=== PATIENT | female | born 1945 | race Caucasian/White ===

== ENCOUNTER 2017-03-02 16:48 | Emergency (ER) | payer OTHER ==
[~2017-03-02] VITALS: Ht 152.4 cm; Wt 53.5 kg
[~2017-03-02 16:48] MED LIST: ADVIL200 M3 PO; AMBIEN 10 MG TA10 MG PO; AMBIEN 5 MG TABL5 M1 PO; ASA81BEC PO; ASPIRIN325 PO; AYR SALINE NASA14 GM TOP; BACTRIM DS TAB1 EACH PO; BREO ELLIPTA 11 EACH INH; CATAPRES-TTS 20.2 MG TRANSDERM; CEFUROXIME500 MG PO; CHILDREN'S ASPI81 M1 PO; COLACE100 MG PO; COZAAR 25 MG TA25 M1 PO; COZAAR 50 MG TA50 M2 PO; DAILY VITE1 EACH PO; DEEP SEA NASAL44 M1; FLUTICASONE FUROATE INH; GEMFIBROZIL 60600 M1 PO; GLUCOPHAGE1000 MG PO; HYDROCODON-ACE1 EAC5 PO; HYDROCODONE-AP1 EAC6 PO; KLOR-CON 1010 MEQ PO; LANTUS SOL100 UNIT/1 SUBQ; LASIX 20 MG TAB20 MG PO; LEVAQUIN 500 M500 M2 PO; LEVEMIR SUBQ; METFORMIN HCL500 MG PO; MOBIC15 MG PO; MULTIVITAMINS1 EAC7 PO; NICOTINE TRANSD21 M1 TRANSDERM; NORCO 10-325 T1 EACH PO; NORCO 5-325 TA1 EACH PO; NORTRIPTYLINE H25 M3 PO; NORVASC5 MG PO; NOVOLIN N100 UNIT/1 SQ; NOVOLIN R100 UNIT/1 SUBQ; PAXIL40 MG PO; PREDNISONE 10 M10 MG PO; PREDNISONE 20 M20 MG PO; PROAIR HFA8.5 GM INH; PULMICORT FLEX90 MCG INH; REQUIP1 MG PO; RESTORIL15 MG PO; SENNA PO; SEROQUEL 12.512.5 MG PO; SPIRIVA18 MCG INH; STOOL SOFTENER100 MG PO; THEO-24200 MG PO; THEO-DUR200 MG PO; THEOPHYLLINE S200 M1 PO; TYLENOL325 MG PO; VENTOLIN HFA INH8 GM INH; VILANTEROL INH; ZOLPIDEM TARTRA10 MG PO
[2017-03-02] MEDS ORDERED: MOBIC15 MG PO (20:07)
== END 2017-03-02 20:25 | disposition home or self-care (01) ==
LOC: ER 16:48
DX: S81.012A Laceration without foreign body, left knee, initial encounter (principal); S70.02XA Contusion of left hip, initial encounter; J44.9 Chronic obstructive pulmonary disease, unspecified; F32.9 Major depressive disorder, single episode, unspecified; F41.9 Anxiety disorder, unspecified; Z90.710 Acquired absence of both cervix and uterus; Z90.49 Acquired absence of other specified parts of digestive tract; I11.0 Hypertensive heart disease with heart failure; I50.9 Heart failure, unspecified; E11.9 Type 2 diabetes mellitus without complications; Z79.4 Long term (current) use of insulin; Z98.890 Other specified postprocedural states; F17.210 Nicotine dependence, cigarettes, uncomplicated; W18.09XA Striking against other object with subsequent fall, initial encounter; Y93.89 Activity, other specified; Y92.89 Other specified places as the place of occurrence of the external cause; Y99.8 Other external cause status

== ENCOUNTER 2017-03-06 16:05 | Inpatient (IN) | payer OTHER ==
[~2017-03-06] VITALS: Ht 152.4 cm; Wt 62.0 kg
--- NOTE | ~2017-03-06 | 2DMMODE ---
[facility] [address] [place] [address] 2 D/M-MODE ECHOCARDIOGRAM Name: SOPHIE ARENAS Room #: 216-P [facility] IN ..#: [id number] Admission: 03/06/17 Attend Phys: Warren Snyder MD Discharge: Date of : 43 Date of Service: 03/09/17 1317 Report #: [id number] THIS REPORT FOR: //name// APPROVED REPORT Study performed: 03/09/2017 09:08:32 EXAM: Comprehensive 2D, Doppler, and color-flow Echocardiogram Patient Location: Bedside Room #: 242 Blood Pressure: 122/73 mmHg HR: 104 bpm Other Information Study Quality: Adequate Indications Dyspnea Hx COPD, DM, Pulmonary HTN, CHF, HTN 2D Dimensions RVDd: 52.98 mm LVEF(%): 57.10 (>50%) IVSd: 14.00 (7-11mm) LVOT Diam: 18.00 (18-24mm) LVDd: 41.46 mm PWd: 12.35 (7-11mm) Ascending Ao: 31.65 (22-36mm) LVDs: 29.18 (25-40mm) Aortic Root: 33.11 mm Ledbetter's LVEF: 57.10 % Volumes Left Atrial Volume (Systole) Single Plane 4CH: 36.66 mL Single Plane 2CH: 51.15 mL Aortic Valve AoV Peak Mikal.: 2.10 m/s AO Peak Gr.: 17.60 mmHg LVOT Max P.59 mmHg AO Mean Gr.: 11.53 mmHg AO V2 Mean: 1.66 m/s LVOT Max V: 1.07 m/s AO V2 VTI: 39.09 cm JEANNINE Vmax: 1.30 cm2 Mitral Valve [facility] [place] [address] [place] [address] 2 D/M-MODE ECHOCARDIOGRAM Name: SOPHIE ARENAS Room #: 216-P [facility] IN [facility].#: [id number] Admission: 03/06/17 Attend Phys: Warren Snyder MD Discharge: Date of : 43 Date of Service: 03/09/17 1317 Report #: [id number] Decel. Time: 152.36 ms IVRT: 106.11 ms Pulmonary Valve PV Peak Mikal.: 1.31 m/s PV Peak Gr.: 6.91 mmHg Pulmonary Vein P Vein S: 48.1 m/s P Vein A: 33.62 m/s P Vein D: 69.0 m/s Tricuspid Valve TR Peak Mikal.: 4.12 m/s RAP Estimate: 10.00 mmHg TR Peak Gr.: 67.99 mmHg RVSP: 78.00 mmHg Left Ventricle The left ventricle is normal size. There is normal LV segmental wall motion. Mild concentric left ventricular hypertrophy. The left ventricular systolic function is normal. LVEF is 55%. This study is not technically sufficient to allow evaluation of the LV diastolic function. Right Ventricle Right ventricle is dilated. The right ventricular systolic function is hypokinetic. Atria The left atrium size is normal. Right atrium is dilated. Aortic Valve Aortic valve is calcified. Mild aortic regurgitation. Mild aortic stenosis. Mitral Valve Mild to moderate mitral annular calcification. The mitral valve is mildly thickened. Trace mitral regurgitation. No evidence of mitral valve stenosis. Tricuspid Valve The tricuspid valve is normal in structure. There is moderate to severe tricuspid regurgitation. The right atrial pressure is estimated at 10 mmHg. There is severe pulmonary hypertension with estimated PAP 78 mmHg. Pulmonic Valve The pulmonary valve is normal in structure. Trace pulmonic regurgitation. [facility] [address] [place] [address] 2 D/M-MODE ECHOCARDIOGRAM Name: SOPHIE ARENAS Room #: 216-P [facility] IN .R.#: [id number] Admission: 03/06/17 Attend Phys: Warren Snyder MD Discharge: Date of : 43 Date of Service: 03/09/17 1317 Report #: [id number] Great Vessels The aortic root is normal in size. The ascending aorta is normal in size. IVC is normal in size and collapses <50% with inspiration. Pericardium Small circumferential pericardial effusion. <Conclusion> The left ventricular systolic function is normal. There is normal LV segmental wall motion. LVEF is 55%. Right ventricle is dilated. Right ventricular systolic function is hypokinetic. Right atrium is dilated. Aortic valve is calcified. Mild aortic regurgitation and stenosis. Mild to moderate mitral annular calcification. The mitral valve is mildly thickened. Trace mitral regurgitation. There is severe pulmonary hypertension with estimated PAP 78 mmHg. Small circumferential pericardial effusion. <ELECTRONICALLY SIGNED> By: Donaldo Knapp MD, FACC 03/09/171316 16 16 Donaldo Knapp MD, FACC /INF
--- NOTE | ~2017-03-06 | EKG ---
[address] [address] ELECTROCARDIOGRAM REPORT Name: SOPHIE ARENAS Room #: 242-P ADM IN M.R.#: [id number] Admission: 03/06/17 Attend Phys: Warren Snyder MD Discharge: Date of : 43 Report #: [id number] THIS REPORT FOR: //name// [facility] ED Test Date: 2017-03-06 Test Time: 16:12:25 Pat Name: SOPHIE ARENAS Department: Room: 242 Gender: F Relationship Advisor: ANA : 1945 Requested By: eRx Dhillon Order Number: [id number] MD: Chico Keith Measurements Intervals [place] Rate: 105 P: 41 VA: 159 QRS: -64 QRSD: 106 T: 34 QT: 357 QTc: 472 Interpretive Statements Sinus tachycardia Left anterior fascicular block Low voltage, precordial leads Consider anterior infarct Compared to ECG 10/21/2016 22:19:12 No significant changes Electronically Signed On 03-09-2017 8:29:06 CDT by Chico Keith [email or web address] <ELECTRONICALLY SIGNED> By: Chico Keith MD 03/09/17 0829 11 11 Chico Keith MD /EPI
--- NOTE | ~2017-03-06 | HC ---
[facility] [place] [place] [address] CONSULTATION Name: SOPHIE ARENAS Room #: 242-P ADM IN M.R.#: [id number] Admission: 03/06/17 Attend Phys: Warren Snyder MD Discharge: Date of : 43 Report #: [id number] THIS REPORT FOR: //name// CC: Warren Foley DATE OF SERVICE: 03/06/2017 REASON FOR CONSULTATION: Respiratory failure. IMPRESSION: 1. Acute respiratory failure. 2. Metabolic acidosis and respiratory acidosis. 3. Acute kidney injury. 4. Abdominal pain, question etiology. 5. Bronchitis. 6. Chronic obstructive pulmonary disease. 7. History of abdominal surgery with infected mesh. 8. Anemia, normocytic. transfer icu icu protocol aerosol therapy zamora acidosis ivf with bicarb bipap prn zamora abd discomfort 40 min crit care time HISTORY OF PRESENT ILLNESS: This is a very pleasant 71-year-old female, currently on BiPAP, limited history. Per chart, disorientation, confusion and productive cough for 3 weeks. The patient complains of abdominal pain, however, progressive. No nausea or vomiting. Positive fever. Recently in the Emergency Room secondary to falls and abrasions. MEDICATIONS: Included theophylline, pregabalin, Losartan, ropinirole, paroxetine, gemfibrozil, metformin, nortriptyline, temazepam, insulin. ALLERGIES: None known. SOCIAL HISTORY: Positive tobacco. Negative ETOH. REVIEW OF SYSTEMS: Fever, chills, altered mental status, abdominal pain. No dysuria. No hemoptysis. PAST MEDICAL HISTORY: COPD, depression, restless legs, anemia, insomnia, CHF, pulmonary hypertension. [facility] [address] [place] [address] CONSULTATION Name: SOPHIE ARENAS Room #: 242-P ADM IN [facility].#: [id number] Admission: 03/06/17 Attend Phys: Warren Snyder MD Discharge: Date of : 43 Report #: [id number] PAST SURGICAL HISTORY: Include ventral hernia repair, colon perforation with colon resection with colostomy, hysterectomy, bladder lift, cholecystectomy, colostomy takedown, exploratory lap with removal of infected mesh in 03/2016. PHYSICAL EXAMINATION: VITAL SIGNS: Temperature 98.3, pulse 108, respirations 18 and BP 121/61 in the ER down to 97/46. LUNGS: Decreased, clear. HEART: Tachycardic. ABDOMEN: Distended, tender. EXTREMITIES: Show no definite edema. No calf tenderness. LABORATORY DATA: Lab and x-ray were reviewed. Chest x-ray showed no acute infiltrate. White count in the ER 8.8, hemoglobin 9.8, platelets 408. ER ABG was 7.197, pCO2 of 49, pO2 of 72 on 3 liters, lactate 1.77. BUN in the ER was 46, creatinine 1.3. We will follow closely with you. <ELECTRONICALLY SIGNED> By: Cassidy Preciado MD 03/08/17 1449 2312 53 Cassidy Preciado MD /nt
--- NOTE | ~2017-03-06 | HC ---
[facility] [place] [address] [address] [place] [address] CONSULTATION Name: SOPHIE ARENAS Room #: 216-P [facility] IN .R.#: [id number] Admission: 03/06/17 Attend Phys: Warren Snyder MD Discharge: Date of : 43 Report #: [id number] THIS REPORT FOR: //name// CC: Warren Foley DATE OF SERVICE: 03/11/2017 HISTORY OF PRESENT ILLNESS: The patient is a 71-year-old white female with a history of COPD, admitted with some confusion, had acute on chronic renal insufficiency, was noted to have worsening shortness of breath with an exacerbation of COPD and a pneumonia. She has severe pulmonary hypertension. She was treated for acute hypoxic respiratory failure and has been on Solu-Medrol with transitioning to oral prednisone. She is currently on 4 liters nasal cannula. We are seeing her in rehabilitation medicine consultation. PAST MEDICAL HISTORY: Includes diabetes mellitus, ventral hernia repair in 2013, restless legs syndrome, cholecystectomy. She had a colostomy with subsequent takedown, chronic pain syndrome, CHF, insulin-dependent diabetes mellitus, severe pulmonary hypertension. HABITS: Current every day smoker. No history of alcohol abuse. MEDICATIONS: Please see the full medication listing. ALLERGIES: No known drug allergies. FAMILY HISTORY: Noncontributory. SOCIAL HISTORY: Lives in a house with spouse. She had been on a walker and some low dose oxygen but was able to advance to the point where she was no longer utilizing the walker and had weaned herself off the oxygen. She lives with her spouse and an adult daughter. Daughter is noted to be a [facility] employee. REVIEW OF SYSTEMS: Did not offer any current complaints of chest pain, shortness of breath or abdominal discomfort. She does complain of some general overall weakness. No extremity focal complaints. No complaints of headache. PHYSICAL EXAMINATION: A 71-year-old white female in no obvious distress. Last recorded temperature 97.8, pulse 102, respirations 16, blood pressure 147/71. The patient is alert. She follows basic commands without difficulty. She is on 4 liters nasal cannula. She has functional range of motion of both upper extremities with strength grade 4 to 4-/5. DTRs are trace to 1. In her lower extremities, there is no focal calf swelling, functional range of motion with strength grade 4/5. DTRs are trace to 1. Tone appeared to be intact. She is [address] [address] CONSULTATION Name: SOPHIE ARENAS Room #: 216-P [facility] IN ..#: [id number] Admission: 03/06/17 Attend Phys: Warren Snyder MD Discharge: Date of : 44 Report #: [id number] contact guard with sit to stand. Gait is 100 feet contact guard needing up to 6 liters without a device. She was needing min assist to don her socks and shoes. ASSESSMENT: A 71-year-old white female with the following problem list: 1. Pulmonary rehabilitation. 2. Acute hypoxic and hypercapnic respiratory failure. 3. Chronic obstructive pulmonary disease exacerbation. 4. Pneumonia. 5. Severe pulmonary hypertension. 6. Hypertension. 7. Diabetes mellitus. 8. Acute renal insufficiency. 9. History of chronic pain syndrome. 10. History of restless legs syndrome. 11. Prior colon resection with colostomy takedown. 12. Tobacco abuse. 13. Depression/anxiety. PLAN: Therapies are working with her on transfers, mobility, ADLs, improving overall endurance. She is needing increased O2 6 liters with activity and is at 4 liters at rest. Insurance will need to be checked regarding rehab therapy options as she further medically stabilizes. Thank you for asking us to assist in this patient's care. By: [id number] Cj Munoz MD /nt
[2017-03-06 16:12] VITALS: BP 97/46
[2017-03-06] MEDS ORDERED: LYRICA 75 MG CA75 MG PO (16:43)
[2017-03-06] MEDS ORDERED: COZAAR 25 MG TA25 M1 PO (16:43)
[2017-03-06 17:07] LABS: ABSOLUTE NEUTROPHILS 7.1 thou/uL (1.4-8.2); BASOPHILS 2.4 % (0.0-2.0); EOSINOPHILS 0.2 % (0.0-3.0); HEMATOCRIT 32.2 % (37.0-47.0); HEMOGLOBIN 9.8 gm/dL (12.0-15.0); LYMPHOCYTES 8.2 % (24.0-44.0); MCH 24.3 pg (26.0-34.0); MCHC 30.4 g/dL (28.0-37.0); MONOCYTES 8.8 % (1.0-8.0); PLATELET COUNT 408 thou/uL (150-400); POLYS 80.4 % (36.0-66.0); RBC 4.02 mil/uL (4.20-5.00); RDW 21.9 % (10.5-14.5); WBC 8.8 thou/uL (4.0-11.0)
[2017-03-06 17:08] LABS: MANUAL DIFF NO
[2017-03-06 17:16] LABS: ANION GAP 9 mmol/L (7-16); BUN 46 mg/dL (7-18); CALCIUM 8.7 mg/dL (8.5-10.1); CHLORIDE 105 mmol/L (98-107); CO2 20 mmol/L (21-32); CREATININE 1.3 mg/dL (0.6-1.0); GLUCOSE 167 mg/dL (74-106); POTASSIUM 4.9 mmol/L (3.5-5.1); SODIUM 134 mmol/L (136-145)
[2017-03-06 17:21] LABS: ABG SAMPLE TYPE ARTERIAL; BE(vivo) -9.3 mmol/L (-2 to +3); HCO3 18.5 mmol/L (22.0-26.0); LACTATE 1.77 mmol/L (0.5-2.0); O2(CT) 12.5 mL/dL (15.0-23.0); O2Hb 85.2 % (92.0-98.0); PCO2 48.7 mmHg (35.0-45.0); STICK SITE R.RADIAL; pH 7.197 (7.360-7.450); sO2 90.7 % (92.0-98.0)
[2017-03-06 17:28] LABS: NT-PRO BRAIN NAT PEPTIDE 730 pg/mL (<300); TROPONIN-I < 0.04 ng/mL (<0.04-0.07)
[2017-03-06 20:42] VITALS: BP 121/61
[2017-03-06 20:53] LABS: ABG SAMPLE TYPE ARTERIAL; HCO3 16.1 mmol/L (22.0-26.0); LACTATE 0.95 mmol/L (0.5-2.0); O2(CT) 13.8 mL/dL (15.0-23.0); O2Hb 90.1 % (92.0-98.0); PCO2 45.7 mmHg (35.0-45.0); PO2 86.4 mmHg (80.0-100.0); sO2 93.9 % (92.0-98.0); tCO2 17.5 mmol/L (24.0-30.0)
[2017-03-06 20:58] LABS: Pressure Support 12 cm H20; pH 7.164 (7.360-7.450)
[2017-03-06 22:50] LABS: CALCIUM 8.3 mg/dL (8.5-10.1); CREATININE 1.4 mg/dL (0.6-1.0); POTASSIUM 5.5 mmol/L (3.5-5.1)
[2017-03-06 22:54] LABS: ALBUMIN 2.6 g/dL (3.4-5.0); TOTAL BILIRUBIN 0.2 mg/dL (<0.1-1.0); TOTAL PROTEIN 6.7 g/dL (6.4-8.2)
[2017-03-06 23:00] LABS: APTT 34.3 Seconds (24.5-32.8); INR 1.1; PROTIME 11.7 Seconds (9.3-11.4)
[2017-03-06 23:11] VITALS: BP 128/77
[2017-03-06 23:15] VITALS: BP 130/67
[2017-03-06 23:30] VITALS: BP 115/69
[2017-03-06 23:45] VITALS: BP 108/60
[2017-03-07] VITALS (35 sets, daily range): BP systolic 93–133; BP diastolic 50–81
[2017-03-07 04:33] LABS: HEMATOCRIT 29.3 % (37.0-47.0); HEMOGLOBIN 9.1 gm/dL (12.0-15.0); MCH 24.5 pg (26.0-34.0); MCHC 31.2 g/dL (28.0-37.0); MCV 78.4 fL (80.0-100.0); PLATELET COUNT 317 thou/uL (150-400); RBC 3.74 mil/uL (4.20-5.00); RDW 21.3 % (10.5-14.5); WBC 7.9 thou/uL (4.0-11.0)
[2017-03-07 04:47] LABS: MANUAL DIFF YES
[2017-03-07 05:03] LABS: MAGNESIUM 1.7 mg/dL (1.8-2.4); TROPONIN-I < 0.04 ng/mL (<0.04-0.07)
[2017-03-07 05:17] LABS: ALBUMIN 2.2 g/dL (3.4-5.0); CALCIUM 7.6 mg/dL (8.5-10.1); CREATININE 1.2 mg/dL (0.6-1.0); TOTAL BILIRUBIN 0.2 mg/dL (<0.1-1.0); TOTAL PROTEIN 5.9 g/dL (6.4-8.2)
[2017-03-07 05:49] LABS: ABG SAMPLE TYPE ARTERIAL; BE(vivo) -2.1 mmol/L (-2 to +3); HCO3 25.1 mmol/L (22.0-26.0); LACTATE 1.35 mmol/L (0.5-2.0); O2(CT) 11.3 mL/dL (15.0-23.0); O2Hb 86.8 % (92.0-98.0); PCO2 55.5 mmHg (35.0-45.0); PO2 55.5 mmHg (80.0-100.0); pH 7.273 (7.360-7.450); sO2 84.3 % (92.0-98.0); tCO2 26.8 mmol/L (24.0-30.0)
[2017-03-07 05:50] LABS: Pressure Support 12 cm H20; STICK SITE L.BRACHIAL
[2017-03-07 05:51] LABS: URINE BILIRUBIN NEGATIVE (Negative); URINE BLOOD 2+ (Negative); URINE COLOR YELLOW; URINE GLUCOSE-RANDOM* NEGATIVE (Negative); URINE KETONES NEGATIVE (Negative); URINE NITRITE NEGATIVE (Negative); URINE PROTEIN (DIPSTICK) 1+ (Negative); URINE SPECIFIC GRAVITY 1.025 (1.003-1.035); URINE UROBILINOGEN 0.2 E.U./dl (0.2-1.0)
[2017-03-07 06:13] LABS: SQUAMOUS 0-3 Few /LPF (0-3)
[2017-03-07 06:16] LABS: CASTS None Seen /LPF (None Seen)
[2017-03-07 06:19] LABS: AMORPHOUS URATES Many /LPF (None Seen); BACTERIA 1-9 Few /HPF (None Seen); CRYSTALS None Seen /LPF (None Seen); URINE RBC 3-10 Few /HPF (0-2); URINE WBC 6-15 Few /HPF (0-5)
[2017-03-07 06:57] LABS: ABSOLUTE NEUTROPHILS 7.5 thou/uL (1.4-8.2); ANISOCYTOSIS 2+; NUCLEATED RBCS 3 /100WBC; TOTAL CELL COUNT 100
[2017-03-07 06:58] LABS: MACROCYTES 1+; MICROCYTES 1+; POLYCHROMASIA 1+
[2017-03-07 07:03] LABS: LARGE PLATELETS FEW
[2017-03-07 09:18] LABS: ABG SAMPLE TYPE ARTERIAL; BE(vivo) -2.3 mmol/L (-2 to +3); HCO3 23.6 mmol/L (22.0-26.0); LACTATE 1.32 mmol/L (0.5-2.0); O2(CT) 12.2 mL/dL (15.0-23.0); O2Hb 88.9 % (92.0-98.0); PCO2 45.7 mmHg (35.0-45.0); pH 7.331 (7.360-7.450); sO2 88.7 % (92.0-98.0)
[2017-03-07 09:19] LABS: STICK SITE R.RADIAL
[2017-03-07] MEDS ORDERED: COLACE100 MG PO (14:49)
[2017-03-08] VITALS (23 sets, daily range): BP systolic 93–158; BP diastolic 40–90
[2017-03-08 04:16] LABS: HEMOGLOBIN 8.9 gm/dL (12.0-15.0); MCH 24.1 pg (26.0-34.0); MCHC 30.8 g/dL (28.0-37.0); MCV 78.4 fL (80.0-100.0); PLATELET COUNT 254 thou/uL (150-400); RBC 3.69 mil/uL (4.20-5.00); RDW 22.2 % (10.5-14.5); WBC 5.5 thou/uL (4.0-11.0)
[2017-03-08 04:42] LABS: ALBUMIN 2.1 g/dL (3.4-5.0); CALCIUM 7.9 mg/dL (8.5-10.1); POTASSIUM 4.5 mmol/L (3.5-5.1); TOTAL BILIRUBIN 0.1 mg/dL (<0.1-1.0); TOTAL PROTEIN 5.6 g/dL (6.4-8.2)
[2017-03-08 04:56] LABS: MANUAL DIFF YES
[2017-03-08 05:05] LABS: ABG SAMPLE TYPE ARTERIAL; BE(vivo) -4.5 mmol/L (-2 to +3); HCO3 23.2 mmol/L (22.0-26.0); LACTATE 0.85 mmol/L (0.5-2.0); O2(CT) 12.8 mL/dL (15.0-23.0); O2Hb 93.2 % (92.0-98.0); PCO2 56.2 mmHg (35.0-45.0); sO2 93.5 % (92.0-98.0); tCO2 24.9 mmol/L (24.0-30.0)
[2017-03-08 05:06] LABS: Pressure Support 12 cm H20; STICK SITE L.RADIAL; pH 7.233 (7.360-7.450)
[2017-03-08 07:59] LABS: ABSOLUTE NEUTROPHILS 4.2 thou/uL (1.4-8.2); TOTAL CELL COUNT 100
[2017-03-08 08:07] LABS: ANISOCYTOSIS 3+
[2017-03-08 08:10] LABS: POLYCHROMASIA OCCASIONAL
[2017-03-08 08:11] LABS: HYPOCHROMASIA 1+; OVALOCYTES FEW
[2017-03-08 12:45] LABS: ABG SAMPLE TYPE ARTERIAL; HCO3 23.8 mmol/L (22.0-26.0); LACTATE 1.26 mmol/L (0.5-2.0); O2(CT) 12.4 mL/dL (15.0-23.0); O2Hb 92.4 % (92.0-98.0); PCO2 51.9 mmHg (35.0-45.0); PO2 73.2 mmHg (80.0-100.0); sO2 92.7 % (92.0-98.0); tCO2 25.4 mmol/L (24.0-30.0)
[2017-03-08 12:48] LABS: STICK SITE R.RADIAL
[2017-03-08 12:55] LABS: % SATURATION 4 % (20-39); IRON 15 ug/dL (50-170); TIBC 345 ug/dL (250-450); UIBC 330 ug/dL
[2017-03-08 13:09] LABS: TSH 3.034 uIU/mL (0.358-3.740)
[2017-03-09] VITALS (16 sets, daily range): BP systolic 92–150; BP diastolic 56–102
[2017-03-09 04:31] LABS: HEMATOCRIT 29.8 % (37.0-47.0); HEMOGLOBIN 8.9 gm/dL (12.0-15.0); MCH 23.8 pg (26.0-34.0); MCHC 29.9 g/dL (28.0-37.0); MCV 79.6 fL (80.0-100.0); PLATELET COUNT 221 thou/uL (150-400); RBC 3.74 mil/uL (4.20-5.00); RDW 21.6 % (10.5-14.5); WBC 6.1 thou/uL (4.0-11.0)
[2017-03-09 04:33] LABS: MANUAL DIFF YES
[2017-03-09 04:49] LABS: ALBUMIN 2.2 g/dL (3.4-5.0); CREATININE 1.1 mg/dL (0.6-1.0); POTASSIUM 4.7 mmol/L (3.5-5.1); TOTAL BILIRUBIN 0.1 mg/dL (<0.1-1.0); TOTAL PROTEIN 5.9 g/dL (6.4-8.2)
[2017-03-09 05:18] LABS: ABG SAMPLE TYPE ARTERIAL; BE(vivo) -4.4 mmol/L (-2 to +3); HCO3 23.1 mmol/L (22.0-26.0); LACTATE 0.99 mmol/L (0.5-2.0); O2(CT) 12.9 mL/dL (15.0-23.0); O2Hb 95.2 % (92.0-98.0); PCO2 55.3 mmHg (35.0-45.0); PO2 92.2 mmHg (80.0-100.0); STICK SITE L.RADIAL; pH 7.239 (7.360-7.450); sO2 95.6 % (92.0-98.0); tCO2 24.8 mmol/L (24.0-30.0)
[2017-03-09 05:30] LABS: ABSOLUTE NEUTROPHILS 4.9 thou/uL (1.4-8.2); ANISOCYTOSIS 2+; ATYPICAL LYMPHS 1 %; MACROCYTES 1+; MICROCYTES 1+; POLYCHROMASIA OCCASIONAL; TOTAL CELL COUNT 100
[2017-03-10 04:33] VITALS: BP 140/80
[2017-03-10 07:40] VITALS: BP 143/77
[2017-03-10 11:40] VITALS: BP 144/66
[2017-03-10 11:47] LABS: HEMATOCRIT 28.6 % (37.0-47.0); HEMOGLOBIN 8.7 gm/dL (12.0-15.0); MCH 24.1 pg (26.0-34.0); MCHC 30.5 g/dL (28.0-37.0); MCV 78.9 fL (80.0-100.0); RBC 3.63 mil/uL (4.20-5.00); RDW 21.6 % (10.5-14.5); WBC 5.7 thou/uL (4.0-11.0)
[2017-03-10 11:55] LABS: CALCIUM 8.3 mg/dL (8.5-10.1); CREATININE 0.8 mg/dL (0.6-1.0); POTASSIUM 4.8 mmol/L (3.5-5.1)
[2017-03-10 15:35] VITALS: BP 130/63
[2017-03-10 19:35] VITALS: BP 146/69
[2017-03-11 03:28] LABS: HEMATOCRIT 28.2 % (37.0-47.0); HEMOGLOBIN 8.5 gm/dL (12.0-15.0); MCH 23.7 pg (26.0-34.0); MCHC 30.2 g/dL (28.0-37.0); MCV 78.7 fL (80.0-100.0); RBC 3.59 mil/uL (4.20-5.00); RDW 21.6 % (10.5-14.5); WBC 5.3 thou/uL (4.0-11.0)
[2017-03-11 03:40] VITALS: BP 96/54
[2017-03-11 03:50] LABS: CALCIUM 7.9 mg/dL (8.5-10.1); CREATININE 0.9 mg/dL (0.6-1.0); POTASSIUM 4.5 mmol/L (3.5-5.1)
[2017-03-11 04:16] VITALS: BP 157/81
[2017-03-11 06:43] LABS: ABG SAMPLE TYPE ARTERIAL; BE(vivo) -0.3 mmol/L (-2 to +3); LACTATE 0.89 mmol/L (0.5-2.0); O2(CT) 13.4 mL/dL (15.0-23.0); O2Hb 93.6 % (92.0-98.0); PO2 78.7 mmHg (80.0-100.0); tCO2 28.8 mmol/L (24.0-30.0)
[2017-03-11 06:44] LABS: STICK SITE L.BRACHIAL; pH 7.286 (7.360-7.450)
[2017-03-11 06:45] LABS: ABG COMMENT OFF BIPAP
[2017-03-11 07:40] VITALS: BP 147/64
[2017-03-11 11:15] VITALS: BP 147/71
[2017-03-11 16:35] VITALS: BP 162/81
[2017-03-11 20:11] VITALS: BP 167/81
[2017-03-12 03:52] LABS: HEMATOCRIT 30.6 % (37.0-47.0); HEMOGLOBIN 9.4 gm/dL (12.0-15.0); MCHC 30.7 g/dL (28.0-37.0); RBC 3.93 mil/uL (4.20-5.00); RDW 21.5 % (10.5-14.5); WBC 6.7 thou/uL (4.0-11.0)
[2017-03-12 04:00] LABS: CALCIUM 8.8 mg/dL (8.5-10.1); CREATININE 0.8 mg/dL (0.6-1.0); POTASSIUM 4.2 mmol/L (3.5-5.1)
[2017-03-12 04:16] VITALS: BP 159/79
[2017-03-12 08:00] VITALS: BP 139/74
[2017-03-12 12:00] VITALS: BP 147/70
[2017-03-12 16:00] VITALS: BP 163/79
[2017-03-12 16:47] LABS: ABG COMMENT DECR. O2 TO 4L.; ABG SAMPLE TYPE ARTERIAL; HCO3 26.7 mmol/L (22.0-26.0); LACTATE 1.37 mmol/L (0.5-2.0); O2(CT) 13.9 mL/dL (15.0-23.0); O2Hb 96.1 % (92.0-98.0); PCO2 42.1 mmHg (35.0-45.0); PO2 102.9 mmHg (80.0-100.0); STICK SITE R.RADIAL; sO2 97.8 % (92.0-98.0)
[2017-03-12 19:34] VITALS: BP 147/87
[2017-03-13] VITALS (10 sets, daily range): BP systolic 136–168; BP diastolic 77–90
[2017-03-13 03:25] LABS: HEMATOCRIT 30.8 % (37.0-47.0); HEMOGLOBIN 9.4 gm/dL (12.0-15.0); MCH 23.8 pg (26.0-34.0); MCHC 30.6 g/dL (28.0-37.0); MCV 77.7 fL (80.0-100.0); RBC 3.96 mil/uL (4.20-5.00); RDW 21.7 % (10.5-14.5); WBC 6.4 thou/uL (4.0-11.0)
[2017-03-13 03:38] LABS: CALCIUM 8.3 mg/dL (8.5-10.1); CREATININE 0.8 mg/dL (0.6-1.0); POTASSIUM 4.2 mmol/L (3.5-5.1)
[2017-03-13] MEDS ORDERED: VENTOLIN HFA 1818 GM INH (12:16)
[2017-03-13] MEDS ORDERED: DUONEB 2.5-0.5 M3 ML INH (12:16)
[2017-03-13] MEDS ORDERED: AUGMENTIN 500-1 EACH PO ×2 (12:16→12:50)
[2017-03-13] MEDS ORDERED: IRON325 PO (12:16)
[2017-03-13] MEDS ORDERED: PROTONIX40 M1 PO (12:38)
[2017-03-13] MEDS ORDERED: PREDNISOLONE 5 M5 M1 PO (12:50)
== END 2017-03-13 18:15 | disposition home health service (06) | DRG 177 ==
LOC: ER 16:05 → EROBS 17:45 → ICU 17:45 → 4W 20:00 → ICU 23:18 → 2N 03-09 13:00
PROVIDERS: Emergency Medicine; Hospitalist; Internal Medicine; Internal Medicine Pulmonary Disease; Nurse Practitioner Family
PROC: 5A09557 Assistance with Respiratory Ventilation, Greater than 96 Consecutive Hours, Continuous Positive Airway Pressure (ICD-10-PCS; principal; 2017-03-06)
DX: J69.0 Pneumonitis due to inhalation of food and vomit (principal); J96.22 Acute and chronic respiratory failure with hypercapnia; J96.21 Acute and chronic respiratory failure with hypoxia; J44.1 Chronic obstructive pulmonary disease with (acute) exacerbation; E87.4 Mixed disorder of acid-base balance; N17.9 Acute kidney failure, unspecified; I13.0 Hypertensive heart and chronic kidney disease with heart failure and stage 1 through stage 4 chronic kidney disease, or unspecified chronic kidney disease; E87.0 Hyperosmolality and hypernatremia; E11.22 Type 2 diabetes mellitus with diabetic chronic kidney disease; F41.9 Anxiety disorder, unspecified; I27.2 Other secondary pulmonary hypertension; I50.9 Heart failure, unspecified; D64.9 Anemia, unspecified; G25.81 Restless legs syndrome; F17.210 Nicotine dependence, cigarettes, uncomplicated; G89.4 Chronic pain syndrome; N18.9 Chronic kidney disease, unspecified; F32.9 Major depressive disorder, single episode, unspecified; Z53.29 Procedure and treatment not carried out because of patient's decision for other reasons; Z90.710 Acquired absence of both cervix and uterus; Z90.49 Acquired absence of other specified parts of digestive tract; Z71.6 Tobacco abuse counseling; Z86.010 Personal history of colon polyps; Z79.4 Long term (current) use of insulin
CPT/HCPCS: 10078; 10081

== ENCOUNTER 2021-11-16 22:00 | Inpatient (IN) | payer MEDICARE ==
[~2021-11-16] VITALS: Ht 152.4 cm; Wt 58.1 kg
--- NOTE | ~2021-11-16 | EMS ---
[address] [address] EMS Patient Care Report Name: SOPHIE ARENAS Room #: 361-P [facility] IN .R.#: [id number] Admission: 11/17/21 Attend Phys: Josee Moses MD Discharge: 11/21/21 Date of : 44 Report #: [id number] THIS REPORT FOR: //name// Report Transmitted: 11/21/2021 18:04 EMS Care Summary [facility] [id number] @ 11/16/2021 20:44 Incident Location [address] [place] [address] Patient SOPHIE ARENAS Female, 76 Years 1945 Patient Address [address] [place] [address] Patient History Chronic Obstructive Pulmonary Disease (COPD),Dementia,Epilepsy,Diabetes,Urinary Tract Infection (UTI), Patient Allergies Fentanyl, Patient Medications Pantoprazole, Paroxetine, Alprazolam, Theophylline, Amlodipine, Losartan, Levetiracetam, Metformin, Chief Complaint high blood sugar Disposition Transported No Lights/[place] Dispatch Reason Sick Person Transported To [facility] Narrative S51 responded non-emergent to sick person dispatch. S51 arrived to find patient laying supine in bed. Patient was alert. Airway was patent[place] [address] EMS Patient Care Report Name: SOPHIE ARENAS Room #: 361-[facility]#: [id number] Admission: 11/17/21 Attend Phys: Josee Moses MD Discharge: 11/21/21 Date of : 44 Report #: [id number] regular and non-labored. Skin was pink, warm,and dry. Peripheral pulses were strong, equal, and regular, and equal. Patient was A&Ox3 with a GCS of 13. Patient initially had no complaint. Patient's daughter stated her blood sugar is in the 300's after she took her insulin approx. 20 min ago, She also stated her mother is currently being treated for a UTI and on day 1 of her antibiotics, she has tested negative for Covid one day ago after her tested positive 3 days ago, and she has not been eating. S51 checked patient's blood glucose level read high on the glucometer. Assessment revealed no other abnormalities. Patient initially refused, then was unsure if she wanted to go to the hospital. S51 delayed on scene due to patient arguing with family members about going to the hospital. When patient decided she wanted to go to the hospital. Assisted patient into stairchair, secured with seatbelts, moved to cot, secured with seatbelts, then moved to the ambulance. Placed patient on 4 liters of oxygen via nasal cannula due to patient's COPD requirements. Established 20 gauge IV in left forearm. Bandaged small skin tear on left upper arm. Reassessed vitals en route to the hospital. Transported non-emergent to [facility]. Arrived without incident. Transferred patient care to TARAH Segal in room 4. Initial Vitals @20:57P: 80,R: 14,BP: 118/57,Pain: 0/10,GCS: 13,Glucose: -2,SpO2: 91,Revised Trauma: 12, @20:58P: 79,R: 16,Pain: 0/10,GCS: 13,SpO2: 93, @21:41P: 75,R: 16,BP: 168/92,Pain: 0/10,GCS: 13,Glucose: -2,SpO2: 93,Revised Trauma: 12, @21:10P: 76,R: 16,Pain: 0/10,GCS: 13,SpO2: 90, @21:52P: 78,R: 14,BP: 140/61,Pain: 0/10,GCS: 13,SpO2: 91,Revised Trauma: 12, Impression Diabetic Hyperglycemia Procedures @20:52 ALS Assessment Response: UnchangedSucceeded @21:42 IV Therapy - Normal Saline (.9% NaCl) 15cc (20 ga) Site: Forearm-Left Response: UnchangedSucceeded @21:05 Bandaging Response: UnchangedSucceeded @20:58 3-Lead ECG Response: UnchangedSucceeded @21:40 Oxygen FlowRate: 4 Device: CO2 Nasal Cannula Response: UnchangedSucceeded Timeline 20:42,Call Received 20:42,Psap Call 20:44,Dispatched [address] [address] EMS Patient Care Report Name: ARENASSOPHIE Room #: 361-P [facility] IN ..#: [id number] Admission: 11/17/21 Attend Phys: Josee Moses MD Discharge: 11/21/21 Date of : 43 Report #: [id number] 20:48,En Route 20:51,Initial Responder On Scene 20:51,On Scene 20:51,At Patient 20:52,ALS Assessment,Response: UnchangedSucceeded, 20:57,BP: 118/57 M,PULSE: 80,RR: 14 R,SPO2: 91 Ox,ETCO2: ,BG: -2,PAIN: 0,GCS: 13, 20:58,3-Lead ECG,Response: UnchangedSucceeded, 20:58,BP: / M,PULSE: 79,RR: 16 R,SPO2: 93 Ox,ETCO2: ,BG: ,PAIN: 0,GCS: 13, 21:05,Bandaging,Response: UnchangedSucceeded, 21:10,BP: / M,PULSE: 76,RR: 16 R,SPO2: 90 Ox,ETCO2: ,BG: ,PAIN: 0,GCS: 13, 21:40,Oxygen FlowRate: 4 Device: CO2 Nasal Cannula Response: UnchangedSucceeded, 21:41,BP: 168/92 M,PULSE: 75,RR: 16 R,SPO2: 93 Ox,ETCO2: ,BG: -2,PAIN: 0,GCS: 13, 21:41,Depart Scene 21:42,IV Therapy - Normal Saline (.9% NaCl) 15cc 20 ga Site: Forearm-Left,Response: UnchangedSucceeded, 21:52,BP: 140/61 M,PULSE: 78,RR: 14 R,SPO2: 91 Ox,ETCO2: ,BG: ,PAIN: 0,GCS: 13, 21:56,At Destination 21:57,Transfer Patient 22:14,Call Closed Disclaimer v1.1 Copyright 2021 [employer] This EMS Care Summary contains data elements from the applicable legal record (which may be displayed differently). It is designed to provide pertinent information for the following purposes: continuity of care, clinical quality, and state data reporting. The complete legal record is available to ED staff and administrators of the receiving hospital in [facility]'s Patient Tracker. All data is provided "as is."
--- NOTE | ~2021-11-16 | EMS ---
[address] [address] EMS Patient Care Report Name: SOPHIE ARENAS Room #: 361-P [facility] IN M.R.#: [id number] Admission: 11/17/21 Attend Phys: Josee Moses MD Discharge: 11/21/21 Date of : 43 Report #: [id number] THIS REPORT FOR: //name// Report Transmitted: 11/21/2021 19:03 EMS Care Summary [facility] Incident [phone] @ 11/16/2021 20:44 Incident Location [address] [place] [address] Patient SOPHIE ARENAS Female, 76 Years 1945 Patient Address [address] [place] [address] Patient History Chronic Obstructive Pulmonary Disease (COPD),Dementia,Epilepsy,Diabetes,Urinary Tract Infection (UTI), Patient Allergies Fentanyl, Patient Medications Pantoprazole, Paroxetine, Alprazolam, Theophylline, Amlodipine, Losartan, Levetiracetam, Metformin, Chief Complaint high blood sugar Disposition Transported No Lights/[place] Dispatch Reason Sick Person Transported To [facility] Narrative S51 responded non-emergent to sick person dispatch. S51 arrived to find patient laying supine in bed. Patient was alert. Airway was [place] [address] EMS Patient Care Report Name: SOPHIE ARENAS Room #: 361-[facility]#: [id number] Admission: 11/17/21 Attend Phys: Josee Moses MD Discharge: 11/21/21 Date of : 43 Report #: [id number] regular and non-labored. Skin was pink, warm,and dry. Peripheral pulses were strong, equal, and regular, and equal. Patient was A&Ox3 with a GCS of 13. Patient initially had no complaint. Patient's daughter stated her blood sugar is in the 300's after she took her insulin approx. 20 min ago, She also stated her mother is currently being treated for a UTI and on day 1 of her antibiotics, she has tested negative for Covid one day ago after her tested positive 3 days ago, and she has not been eating. S51 checked patient's blood glucose level read high on the glucometer. Assessment revealed no other abnormalities. Patient initially refused, then was unsure if she wanted to go to the hospital. S51 delayed on scene due to patient arguing with family members about going to the hospital. When patient decided she wanted to go to the hospital. Assisted patient into stairchair, secured with seatbelts, moved to cot, secured with seatbelts, then moved to the ambulance. Placed patient on 4 liters of oxygen via nasal cannula due to patient's COPD requirements. Established 20 gauge IV in left forearm. Bandaged small skin tear on left upper arm. Reassessed vitals en route to the hospital. Transported non-emergent to [facility]. Arrived without incident. Transferred patient care to TARAH Segal in room 4. Initial Vitals @20:57P: 80,R: 14,BP: 118/57,Pain: 0/10,GCS: 13,Glucose: -2,SpO2: 91,Revised Trauma: 12, @20:58P: 79,R: 16,Pain: 0/10,GCS: 13,SpO2: 93, @21:41P: 75,R: 16,BP: 168/92,Pain: 0/10,GCS: 13,Glucose: -2,SpO2: 93,Revised Trauma: 12, @21:10P: 76,R: 16,Pain: 0/10,GCS: 13,SpO2: 90, @21:52P: 78,R: 14,BP: 140/61,Pain: 0/10,GCS: 13,SpO2: 91,Revised Trauma: 12, Impression Diabetic Hyperglycemia Procedures @20:52 ALS Assessment Response: UnchangedSucceeded @21:42 IV Therapy - Normal Saline (.9% NaCl) 15cc (20 ga) Site: Forearm-Left Response: UnchangedSucceeded @21:05 Bandaging Response: UnchangedSucceeded @20:58 3-Lead ECG Response: UnchangedSucceeded @21:40 Oxygen FlowRate: 4 Device: CO2 Nasal Cannula Response: UnchangedSucceeded Timeline 20:42,Call Received 20:42,Psap Call 20:44,Dispatched [address] [address] EMS Patient Care Report Name: ARENASSOPHIE Room #: 361-P [facility] IN ..#: [id number] Admission: 11/17/21 Attend Phys: Josee Moses MD Discharge: 11/21/21 Date of : 43 Report #: [id number] 20:48,En Route 20:51,Initial Responder On Scene 20:51,On Scene 20:51,At Patient 20:52,ALS Assessment,Response: UnchangedSucceeded, 20:57,BP: 118/57 M,PULSE: 80,RR: 14 R,SPO2: 91 Ox,ETCO2: ,BG: -2,PAIN: 0,GCS: 13, 20:58,3-Lead ECG,Response: UnchangedSucceeded, 20:58,BP: / M,PULSE: 79,RR: 16 R,SPO2: 93 Ox,ETCO2: ,BG: ,PAIN: 0,GCS: 13, 21:05,Bandaging,Response: UnchangedSucceeded, 21:10,BP: / M,PULSE: 76,RR: 16 R,SPO2: 90 Ox,ETCO2: ,BG: ,PAIN: 0,GCS: 13, 21:40,Oxygen FlowRate: 4 Device: CO2 Nasal Cannula Response: UnchangedSucceeded, 21:41,BP: 168/92 M,PULSE: 75,RR: 16 R,SPO2: 93 Ox,ETCO2: ,BG: -2,PAIN: 0,GCS: 13, 21:41,Depart Scene 21:42,IV Therapy - Normal Saline (.9% NaCl) 15cc 20 ga Site: Forearm-Left,Response: UnchangedSucceeded, 21:52,BP: 140/61 M,PULSE: 78,RR: 14 R,SPO2: 91 Ox,ETCO2: ,BG: ,PAIN: 0,GCS: 13, 21:56,At Destination 21:57,Transfer Patient 22:14,Call Closed Disclaimer v1.1 Copyright 2021 [employer] This EMS Care Summary contains data elements from the applicable legal record (which may be displayed differently). It is designed to provide pertinent information for the following purposes: continuity of care, clinical quality, and state data reporting. The complete legal record is available to ED staff and administrators of the receiving hospital in [facility]'s Patient Tracker. All data is provided "as is."
[~2021-11-16 22:00] MED LIST changes: +AUGMENTIN 500-1 EACH PO; +DUONEB 2.5-0.5 M3 ML INH; +IRON325 PO; +LYRICA 75 MG CA75 MG PO; +PREDNISOLONE 5 M5 M1 PO; +PROTONIX40 M1 PO; +VENTOLIN HFA 1818 GM INH
[2021-11-16 22:24] VITALS: BP 121/63
[2021-11-16 22:30] LABS: BASOPHILS 0.5 % (0.0-2.0); EOSINOPHILS 0.1 % (0.0-3.0); HEMATOCRIT 35.6 % (37.0-47.0); HEMOGLOBIN 11.5 gm/dL (12.0-15.0); LYMPHOCYTES 10.5 % (24.0-44.0); MCH 29.6 pg (26.0-34.0); MCHC 32.3 g/dL (28.0-37.0); MCV 91.5 fL (80.0-100.0); MONOCYTES 11.9 % (1.0-8.0); PLATELET COUNT 154 thou/uL (150-400); RBC 3.89 mil/uL (4.20-5.00); RDW 17.2 % (10.5-14.5); WBC 5.2 thou/uL (4.0-11.0)
[2021-11-16 22:31] LABS: BE(vivo) -8.2 mmol/L (-2 to +3); HCO3 18.6 mmol/L (22.0-26.0); PCO2 VENOUS 42.9 mmHg (41.0-51.0); PO2 VENOUS 44.4 mmHg (35.0-45.0)
[2021-11-16 22:38] LABS: CALCIUM 7.3 mg/dL (8.5-10.1); CREATININE 2.5 mg/dL (0.6-1.0); POTASSIUM 3.1 mmol/L (3.5-5.1)
[2021-11-16 22:46] LABS: ALBUMIN 3.2 g/dL (3.4-5.0); TOTAL BILIRUBIN 0.2 mg/dL (0.2-1.0); TOTAL PROTEIN 6.3 g/dL (6.4-8.2)
[2021-11-17 00:14] LABS: URINE BILIRUBIN NEGATIVE (Negative); URINE BLOOD 2+ (Negative); URINE CLARITY CLEAR; URINE COLOR YELLOW; URINE GLUCOSE-RANDOM* 1+ (Negative); URINE KETONES NEGATIVE (Negative); URINE LEUKOCYTES-REFLEX 2+ (Negative); URINE NITRITE-REFLEX NEGATIVE (Negative); URINE PROTEIN (DIPSTICK) 2+ (Negative); URINE SPECIFIC GRAVITY 1.025 (1.005-1.035); URINE UROBILINOGEN 0.2 E.U./dl (0.2-1.0)
[2021-11-17 00:29] LABS: SQUAMOUS 0-3 Few /LPF (0-3)
[2021-11-17 00:30] LABS: BACTERIA-REFLEX None Seen /HPF (None Seen); CALCIUM OXALATE >10 Many /LPF (None Seen); CASTS None Seen /LPF (None Seen); MUCUS 0-3 Light strn/LPF (None Seen); URINE RBC >20 Many /HPF (NONE SEEN); URINE WBC-REFLEX >25 Many /HPF (0-5)
[2021-11-17 03:46] VITALS: BP 108/45
--- NOTE | 2021-11-17 03:50 | NUR ---
ATTEMPTED TO CALL [facility] AT THIS TIME. THIS NURSE WAS TOLD THE NURSE WAS BUSY AND COULD NOT COME TO THE PHONE AT THIS TIME.
--- NOTE | 2021-11-17 04:04 | NUR ---
REPORT ATTEMPTED AT THIS TIME. THIS NURSE WAS TOLD THAT THE NURSE WILL CALL HER BACK.
--- NOTE | 2021-11-17 05:17 | NUR ---
REPORT CALLED AT THIS TIME TO INPATIENT NURSE.
[2021-11-17 07:37] VITALS: BP 135/80
--- NOTE | 2021-11-17 08:04 | NUR ---
PT ADMITTED FROM ER AROUND 05:30. VSS AFEBRILE. UNLABORED ON 3LNC. BS DIMINISHED. INSTRUCTED PT ON FALL PRECAUTIONS. BED ALARM IS ON. ORIENTED PT TO RM AND CALL LIGHT. PT UNCOOPERATIVE WITH ADMISSION QUESTIONS. MUCH COAXING NEEDED TO COMPLETE ADMISSION QUESTIONS. NS AT 150 LFA. CONSULTS CALLED ORDERED. INFORMED DAY SHIFT NS PT FULLY ADMITTED EXCEPT HOME MEDICATIONS NEEDED TO BE OBTAINED.
[2021-11-17] MEDS ORDERED: CIPRO250 M2 PO (11:01)
[2021-11-17] MEDS ORDERED: LOMOTIL 2.5-0.01 TAB PO (11:02)
[2021-11-17] MEDS ORDERED: LOMOTIL TABLET1 EACH (11:03)
[2021-11-17] MEDS ORDERED: NORCO 10-325 T1 EACH (11:04)
[2021-11-17] MEDS ORDERED: LIPITOR 40 MG T40 M1 PO (11:05)
[2021-11-17] MEDS ORDERED: AMLODIPINE BESY10 MG PO (11:05)
[2021-11-17] MEDS ORDERED: OXCARBAZEPINE300 MG PO (11:05)
[2021-11-17] MEDS ORDERED: KEPPRA 500 MG500 M1 (11:06)
[2021-11-17] MEDS ORDERED: PREGABALIN75 MG PO (11:06)
[2021-11-17] MEDS ORDERED: THEOPHYLLINE A400 MG PO (11:07)
[2021-11-17] MEDS ORDERED: PAROXETINE HCL20 MG PO (11:07)
[2021-11-17 11:51] VITALS: BP 130/62
--- NOTE | 2021-11-17 13:00 | EKG ---
[address] [place] [address] ELECTROCARDIOGRAM REPORT Name: SOPHIE ARENAS Room #: 361- ADM IN M.R.#: [id number] Admission: 11/17/21 Attend Phys: Josee Moses MD Discharge: Date of : 43 Report #: [id number] [facility] ED Test Date: 2021-11-16 Test Time: 22:39:13 Pat Name: SOPHIE ARENAS Department: Room: [facility] Gender: F Broommaker: PRITESH : 1945 Requested By: Humberto Mendieta Order Number: [id number] MD: Donaldo Knapp Measurements Intervals [place] Rate: 77 P: 54 CO: 154 QRS: -52 QRSD: 108 T: 1 QT: 452 QTc: 512 Interpretive Statements Sinus rhythm Left anterior fascicular block Abnormal R-wave progression, late transition Prolonged QT interval Compared to ECG 03/06/2017 16:12:25 Prolonged QT interval now present Sinus tachycardia no longer present Electronically Signed On 11-17-2021 12:59:56 [employer]ICE [employer]ENTER SUPERVISOR by Donaldo Knapp [email or web address] <ELECTRONICALLY SIGNED> By: Donaldo Knapp MD, [facility] 11/17/21 1259 38 38 Donaldo Knapp MD, [facility] /EPI
[2021-11-17 15:30] VITALS: BP 126/52
--- NOTE | 2021-11-17 18:38 | NUR ---
CARE ASSUMED THIS AM, ALERT AND ORIENTED X3-4. FORGETFUL AT TIMES. CURRENTLY ON 7L OXYGEN, SOB WITH EXERTION. PT PHARMACY CALLED AND HOME MED VERIFIED. UP TO BSC WITH 1 ASSIST. 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 FALL AND ENHANCED PRECAUTIONS IN PLACE. DENIES ANY NEEDS MARILYN, WILL CONTINUE TO MONITOR.
[2021-11-17 19:46] VITALS: BP 134/71
[2021-11-17 21:46] LABS: ABSOLUTE NEUTROPHILS 3.5 thou/uL (1.4-8.2); BASOPHILS 0.2 % (0.0-2.0); HEMATOCRIT 31.9 % (37.0-47.0); HEMOGLOBIN 10.5 gm/dL (12.0-15.0); MCH 29.9 pg (26.0-34.0); MCHC 32.9 g/dL (28.0-37.0); MCV 90.9 fL (80.0-100.0); MONOCYTES 7.1 % (1.0-8.0); PLATELET COUNT 129 thou/uL (150-400); POLYS 85.7 % (36.0-66.0); RBC 3.51 mil/uL (4.20-5.00); RDW 17.7 % (10.5-14.5); WBC 4.1 thou/uL (4.0-11.0)
[2021-11-17 22:00] LABS: ALBUMIN 2.6 g/dL (3.4-5.0); ANION GAP 15 mmol/L (7-16); BUN 32 mg/dL (7-18); CALCIUM 6.6 mg/dL (8.5-10.1); CHLORIDE 106 mmol/L (98-107); CO2 21 mmol/L (21-32); CREATININE 2.3 mg/dL (0.6-1.0); GLUCOSE 246 mg/dL (74-106); POTASSIUM 3.1 mmol/L (3.5-5.1); SGOT 37 U/L (15-37); SGPT 29 U/L (30-65); TOTAL BILIRUBIN < 0.1 mg/dL (0.2-1.0); TOTAL PROTEIN 6.1 g/dL (6.4-8.2)
[2021-11-17 22:03] LABS: SODIUM 142 mmol/L (136-145)
--- NOTE | 2021-11-17 23:18 | NUR ---
PT ALERT AND ORIENTED X4. ANXIOUS AND IRRITATBLE AT TIMES. PT C/O ENCINAS, RIGHT HIP PAIN, HERNIA PAIN. AND NONCARDIAC CHEST PAIN WITH DEEP BREATHING AND COUGHING. MEDICATED WITH HYDROCODONE AND LYRICA. NOTIFIED INSTRUMENT PANEL ASSEMBLER OF +DDIMER 0.51, MG 1.0. k 3.1 AND NONCARDIAC CHEST PAIN PT STATES HURTS WITH DEEP BREATHING OR COUGHING. WILL GET VQ SCAN IN AM ORDERED. PT ON HEPARIN SQ. WILL REPLACE LYTES ORDERED. WILL WATCH PT FOR CHANGES. PT SR ON MONITOR WITH OCCASIONAL PVCS.
[2021-11-18 00:02] VITALS: BP 139/62
--- NOTE | 2021-11-18 03:02 | NUR ---
PT SLEEPING QUIETLY. VERBALIZED RELIEF OF PAIN AFTER HYDROCODONE. NO S/S DISTRESS ON 4LNC PRESENTLY.
[2021-11-18 04:06] LABS: GLYCOHEMOGLOBIN (HGB A1C) 7.8 % (4.8-5.6)
[2021-11-18 05:00] VITALS: BP 153/76
[2021-11-18 05:57] LABS: ABSOLUTE NEUTROPHILS 4.2 thou/uL (1.4-8.2); BASOPHILS 0.5 % (0.0-2.0); HEMATOCRIT 32.5 % (37.0-47.0); HEMOGLOBIN 10.7 gm/dL (12.0-15.0); LYMPHOCYTES 3.8 % (24.0-44.0); MCH 29.5 pg (26.0-34.0); MCHC 32.8 g/dL (28.0-37.0); MCV 89.8 fL (80.0-100.0); MONOCYTES 4.9 % (1.0-8.0); PLATELET COUNT 121 thou/uL (150-400); POLYS 90.8 % (36.0-66.0); RBC 3.62 mil/uL (4.20-5.00); RDW 17.4 % (10.5-14.5); WBC 4.6 thou/uL (4.0-11.0)
[2021-11-18 06:19] LABS: ALBUMIN 2.7 g/dL (3.4-5.0); ANION GAP 13 mmol/L (7-16); BUN 28 mg/dL (7-18); CALCIUM 7.2 mg/dL (8.5-10.1); CHLORIDE 108 mmol/L (98-107); CO2 21 mmol/L (21-32); CREATININE 2.2 mg/dL (0.6-1.0); DIRECT BILIRUBIN < 0.1 mg/dL (<0.1-0.2); GLUCOSE 238 mg/dL (74-106); POTASSIUM 3.4 mmol/L (3.5-5.1); SGOT 35 U/L (15-37); SGPT 30 U/L (14-59); SODIUM 142 mmol/L (136-145); TOTAL BILIRUBIN 0.1 mg/dL (0.2-1.0)
--- NOTE | 2021-11-18 06:45 | NUR ---
PT PROGRESING SLOWLY TOWARDS D/C GOALS. VSS. C/O HIP PAIN THIS AM. HYDROCODONE GIVEN FOR PAIMN. PT FELL BACK ASLEEP. NO S/S DISTRESS.
[2021-11-18 07:39] VITALS: BP 150/74
--- NOTE | 2021-11-18 09:54 | NUR ---
Nutrition: pt admitted with UTI, PRISCILA, COVID. S/W pt over phone. High risk screen for poor intake and weight loss. Pt voices current weight down 5# from usual of 130#. Unsure of time frame. Denies poor appetite prior to admit and is eating 60-100% of meals so far on heart healthy diet. Hx DM with hyperglycemia present. BG 199-232. Will add Carb controlled to diet order. Consider low nutrition risk.
[2021-11-18 11:32] VITALS: BP 121/68
--- NOTE | 2021-11-18 12:31 | NUR ---
Pt sat on side of bed and fed self breakfast with min direction. transferred to bsc w/o problem. feeling worse as morning has gone on "i dont want to do anything but lay in this bed." agreed to go for VQ scan but then refused once down for test. Dr Moses paged to notify. IV fluid and antibx continue to infuse without problem. pt oriented. remains >92% on 4 L o2. will continue to monitor and follow poc
[2021-11-18 15:52] VITALS: BP 112/63
--- NOTE | 2021-11-18 19:07 | HC ---
[facility] [place] [address] CONSULTATION Name: SOPHIE ARENAS Room #: 361-P ADM IN M.R.#: [id number] Admission: 11/17/21 Attend Phys: Josee Moses MD Discharge: Date of : 43 Report #: [id number] THIS REPORT FOR: cc: EMMA - No family physician/PCP FAM - No family physician/PCP Dusty Ortega MD ~ DATE OF SERVICE: 11/17/2021 INFECTIOUS DISEASE CONSULTATION REASON FOR CONSULTATION: I was asked to evaluate concerning COVID-19 pneumonia. HISTORY OF PRESENT ILLNESS: The patient is a 76-year-old with underlying history of COPD and requires 4 liters of oxygen chronically at home. In addition, she has diabetes, pulmonary hypertension. She has been recently treated for urinary tract infection, 6 days ago had the acute onset of fatigue, nonproductive cough, mild headache, arthralgias, myalgias, mild GI upset with intermittent emesis and subsequent diarrhea. Denied any fever, chills or sweats. She has been vaccinated x2 for COVID-19. No recent booster. Denied any chest pain, palpitations or hemoptysis. No dysuria. PAST MEDICAL HISTORY: COPD, chronic O2 requiring anxiety, depression, restless leg syndrome, congestive heart failure, diabetes, anemia, insomnia, pulmonary hypertension, colon perforation, chronic pain syndrome, ventral hernia repair with infection, hysterectomy, cholecystectomy, bladder sling surgery, colostomy with takedown. FAMILY HISTORY: No report of tuberculosis. SOCIAL HISTORY: She is a smoker of cigarettes. No significant alcohol intake. is also admitted with COVID-19. ALLERGIES: None known. MEDICATIONS: As noted on her MAR, which were reviewed. REVIEW OF SYSTEMS: A 14-point review of system was negative other than what has been described above. PHYSICAL EXAMINATION: GENERAL: She was afebrile and hemodynamically stable. Alert, cooperative, pleasant on 6 liters of oxygen per nasal cannula. SKIN: Without rash or decubitus. No palpable adenopathy. She was moderately obese. HEENT: Eyes without scleral icterus. Mouth without mucositis. NECK: Supple. [facility] [address] [place] [address] CONSULTATION Name: SOPHIE ARENAS David Room #: 361-P [facility] IN .R.#: [id number] Admission: 11/17/21 Attend Phys: Josee Moses MD Discharge: Date of : 43 Report #: [id number] LUNGS: Few crackles in the bases bilaterally without consolidation. HEART: Regular, without murmur. ABDOMEN: Soft and nontender with no hepatosplenomegaly or mass. EXTREMITIES: Without clubbing, cyanosis or edema. NEUROLOGIC: Cranial nerves intact and strength in the upper and lower extremities was symmetric and within normal limits. LABORATORY DATA: Reviewed. MICROBIOLOGY: Reviewed. IMAGING: Chest x-ray reviewed. CT scan of the abdomen and pelvis reviewed. IMPRESSION: 1. A 76-year-old underlying chronic obstructive pulmonary disease, now with COVID-19 pneumonia and respiratory failure with acute kidney injury, also with cystitis on treatment. 2. Anemia. 3. Hypertension. 4. Hyperlipidemia. 5. Diabetes. RECOMMENDATION: We will continue with combination corticosteroids and remdesivir. Continue antibiotic coverage pending culture results. Check blood and urine culture in addition to sputum culture. Follow serial laboratory studies. The patient will remain on the COVID isolation unit for cardiopulmonary monitoring. <ELECTRONICALLY SIGNED> By: Dusty Ortega MD 11/18/21 1907 [id number] 48 Dusty Ortega MD /nt
[2021-11-18 20:00] VITALS: BP 134/60
--- NOTE | 2021-11-19 03:31 | NUR ---
PT PPROGRESSING TOWARDS D/C GOALS VSS AFEBRLILE. UNLABORED ON 4LNC. NO S/S OF RESPIRATORY DISTRESS TONIGHT. C/O ANXIETY AND INSOMNIA. MELATONINA ND XANAX GIVEN ORDERED. PT HAS BEEN RESTING QUIETLY SLEEPING MOST OF NIGHT. BED DOWN CALL LIGHT IN REACH. BED ALARM IS ON. VOIDS PER BSC OR INC IN BRIEFS.
[2021-11-19 05:18] VITALS: BP 151/61
[2021-11-19 05:40] LABS: ALBUMIN 2.6 g/dL (3.4-5.0); ANION GAP 13 mmol/L (7-16); BUN 31 mg/dL (7-18); CALCIUM 7.2 mg/dL (8.5-10.1); CHLORIDE 108 mmol/L (98-107); CO2 22 mmol/L (21-32); CREATININE 2.2 mg/dL (0.6-1.0); DIRECT BILIRUBIN < 0.1 mg/dL (<0.1-0.2); GLUCOSE 342 mg/dL (74-106); PHOSPHORUS 3.7 mg/dL (2.5-4.9); SGOT 34 U/L (15-37); SGPT 35 U/L (30-65); SODIUM 143 mmol/L (136-145); TOTAL BILIRUBIN < 0.1 mg/dL (0.2-1.0); TOTAL PROTEIN 5.9 g/dL (6.4-8.2)
[2021-11-19 08:04] VITALS: BP 146/74
[2021-11-19 11:50] VITALS: BP 141/73
--- NOTE | 2021-11-19 12:53 | NUR ---
PT UP IN THE CHAIR MARILYN, UP TO BSC WITH 1 ASSIST. INCONTINENT AT TIMES. REHAB TEAM CAME TO EVALUATE PT, PT STATED SHE DOESNT NEED REHAB. CURRENTLY ON 4L OF OXYGEN, SOB EXERTION. PT IS A FEEDER DUE TO BEING BLIND. FALL AND ENHANCED PRECAUTIONS IN PLACE. WILL CONTINUE TO MONITOR.
--- NOTE | 2021-11-19 14:25 | NUR ---
INITIAL ASSESSMENT: MAEGAN reviewed chart and spoke with nursing and attending physician. Pt was admitted fom home due to COVID/UTI. Pt placed in Enhanced Isolation. Pt has received the Pfizer COVID vaccination. Pt is afebrile and on 4L of O2. Pt is on IV meds. Therapy ordered. MAEGAN placed call to pt's room. No answer. MAEGAN spoke with pt's dtr, Nighat, via phone. Introduced role of SW. Pt and spouse lives at home. Two of their adult children live with them. Prior to admission, pt was using a walker. Pt has home O2 in place through [facility]. Pt is normally on 3L of O2. Pt has used several HH agencies in the past and has been to [facility]. SW discussed discharge plan. Pt's dtr states that preference would be for pt to return home, as she is better in her familiar environment. Pt is partially blind. No preference of HH agency. Pt's PCP is Dr. Carmen Jackson at [facility]. MAEGAN is following to assist as needed with discharge planning.
[2021-11-19 15:31] VITALS: BP 133/66
[2021-11-19 20:13] VITALS: BP 141/80
--- NOTE | 2021-11-19 20:16 | NUR ---
PT SON STATES SHE STARTED HAVING COVID SYMPTOMS NOV 10
[2021-11-20 03:06] LABS: ABSOLUTE NEUTROPHILS 2.9 thou/uL (1.4-8.2); BASOPHILS 0.5 % (0.0-2.0); EOSINOPHILS 0.6 % (0.0-3.0); HEMOGLOBIN 10.5 gm/dL (12.0-15.0); LYMPHOCYTES 8.6 % (24.0-44.0); MCH 30.2 pg (26.0-34.0); MCHC 32.7 g/dL (28.0-37.0); MCV 92.2 fL (80.0-100.0); MONOCYTES 7.5 % (1.0-8.0); PLATELET COUNT 137 thou/uL (150-400); POLYS 82.8 % (36.0-66.0); RBC 3.47 mil/uL (4.20-5.00); RDW 17.7 % (10.5-14.5); WBC 3.5 thou/uL (4.0-11.0)
[2021-11-20 04:34] LABS: ALBUMIN 2.7 g/dL (3.4-5.0); ANION GAP 15 mmol/L (7-16); BUN 34 mg/dL (7-18); CALCIUM 7.3 mg/dL (8.5-10.1); CHLORIDE 108 mmol/L (98-107); CO2 21 mmol/L (21-32); DIRECT BILIRUBIN < 0.1 mg/dL (<0.1-0.2); GLUCOSE 209 mg/dL (74-106); POTASSIUM 3.7 mmol/L (3.5-5.1); SGOT 30 U/L (15-37); SGPT 34 U/L (30-65); SODIUM 144 mmol/L (136-145); TOTAL BILIRUBIN < 0.1 mg/dL (0.2-1.0); TOTAL PROTEIN 5.7 g/dL (6.4-8.2)
[2021-11-20 05:56] VITALS: BP 138/99
--- NOTE | 2021-11-20 06:07 | NUR ---
Progress pt a/o x4 up with sba to bsc. on 3 to 4 liters o2 gets sob with activity but recovers easily. voiding qs tolerating diet and has good po intake. c/o chronic back pain and hydrocodone given po q6hrs with effect pt slept after. continue poc.
[2021-11-20 07:55] VITALS: BP 146/85
[2021-11-20 11:29] VITALS: BP 130/61
--- NOTE | 2021-11-20 14:31 | NUR ---
MAEGAN reviewed chart and spoke with nursing and attending physician. Pt remains in Enhanced Isolation due to COVID. Pt is afebrile and on 3L of O2. PT is on IV abx and Remdesivir. Physical therapy has discharge pt. Recommendation made for pt to have HH services upon discharge. Discharge home is anticipated for tomorrow. MAEGAN spoke with pt's son, Daniel, via phone to provide update. Options for HH providers discussed. No preference voiced. MAEGAN confirmed home address and phone number MAEGAN notified [facility] liaison of new referral. [facility] can accept pt on service. Pt has home O2 in place through [facility]. Pt's son to update pt's dtr, Nighat. Plan is for pt to discharge home with HH services. MAEGAN is following to assist as needed with discharge planning.
[2021-11-20 15:35] VITALS: BP 149/66
--- NOTE | 2021-11-20 18:23 | NUR ---
PATIENT A&OX4, 4L VIA NC, UP TO CHAIR TODAY FOR MEALS AND WALKED AROUND ROOM WITH X1 ASSIST, NSR WITH FREQUENT PVCs.
[2021-11-20 19:40] VITALS: BP 141/61
[2021-11-21 03:18] VITALS: BP 145/79
[2021-11-21 05:05] LABS: ALBUMIN 2.8 g/dL (3.4-5.0); ANION GAP 13 mmol/L (7-16); BUN 46 mg/dL (7-18); CALCIUM 7.7 mg/dL (8.5-10.1); CHLORIDE 104 mmol/L (98-107); CO2 24 mmol/L (21-32); CREATININE 2.1 mg/dL (0.6-1.0); DIRECT BILIRUBIN < 0.1 mg/dL (<0.1-0.2); GLUCOSE 290 mg/dL (74-106); PHOSPHORUS 3.1 mg/dL (2.5-4.9); SGOT 23 U/L (15-37); SGPT 29 U/L (30-65); SODIUM 141 mmol/L (136-145); TOTAL BILIRUBIN < 0.1 mg/dL (0.2-1.0); TOTAL PROTEIN 5.7 g/dL (6.4-8.2)
--- NOTE | 2021-11-21 06:47 | NUR ---
PROGRESS PT C/O STOMACHACHE LAST NIGHT REQUESTED PROTONIX GAVE AM DOSE EARLY, COLACE GIVEN AND PT HAD BM AND STATED SHE FELT BETTER. UP WITH SBA VOIDING QS. TELEMETRY INTACT READING SR/ST WITH RATES IN 60'S TO 90'S.
[2021-11-21 07:50] VITALS: BP 134/53
[2021-11-21 09:00] VITALS: BP 133/60
[2021-11-21 11:30] VITALS: BP 133/60
[2021-11-21 11:56] VITALS: BP 133/60
[2021-11-21] MEDS ORDERED: PREDNISONE 10 M10 M1 PO (15:27)
[2021-11-21] MEDS ORDERED: CEFDINIR300 MG PO (15:28)
[2021-11-21] MEDS ORDERED: THEOPHYLLINE A400 MG PO (15:30)
[2021-11-21] MEDS ORDERED: PAXIL40 MG PO (15:30)
--- NOTE | 2021-11-21 16:12 | NUR ---
DISCHARGE NOTE: SW reviewed chart and spoke with nursing and attending physician. Pt remains in Enhanced Isolation due to COVID. Pt is medically stable for discharge home today. Pt refused HH services. SW updated [facility] liaison. MAEGAN spoke with pt's dtr, Nighat, via phone to provide update and discuss discharge. SW informed Nighat that pt declined HH services. Pt's dtr verbalized understanding and will be providing transportation home for pt. Family will bring portable O2 tank. SW updated pt's nurse. Nursing to call Nighat when pt is ready for discharge. No SW discharge needs identified at this time, but is available to assist should needs arise.
--- NOTE | 2021-11-21 18:41 | NUR ---
RN ASSUMED PT'S CARE AT 0700-1730PM, PT IS A&OX4, PT IS ON O2 5-6L/MIN/NC, PT'S O2SAT STAY AT 94-97%, PT'S VS ARE STABLE , PT REQUESTS TO DC HOME, BUT PT REFUSED HOME HEALTH CARE SERVICES, PT'S FAMILY WILL TAKE CARE PT AT HOME, PT AND PT'S 2 DAUGHTERS UNDERSTAND DC TEACHING WELL, INCLUIDING NEW MEDICATIONS AND COVID ISOLATION DAYS. PT'S DAUGHTER QLIKVIEW DEVELOPER PT AT 1730PM.
== END 2021-11-21 17:24 | disposition home or self-care (01) | DRG 177 ==
LOC: ER 22:00 → EROBS 11-17 05:11 → 3W 11-17 05:11
PROVIDERS: Emergency Medicine; Nurse Practitioner Family; Specialist; ADMIT Internal Medicine; ATTEND Internal Medicine
PROC: XW033E5 Introduction of Remdesivir Anti-infective into Peripheral Vein, Percutaneous Approach, New Technology Group 5 (ICD-10-PCS; principal; 2021-11-17)
DX: U07.1 COVID-19 (principal); J96.21 Acute and chronic respiratory failure with hypoxia; J12.82 Pneumonia due to coronavirus disease 2019; N17.9 Acute kidney failure, unspecified; J44.0 Chronic obstructive pulmonary disease with (acute) lower respiratory infection; J44.1 Chronic obstructive pulmonary disease with (acute) exacerbation; I13.0 Hypertensive heart and chronic kidney disease with heart failure and stage 1 through stage 4 chronic kidney disease, or unspecified chronic kidney disease; N30.00 Acute cystitis without hematuria; E46 Unspecified protein-calorie malnutrition; E11.65 Type 2 diabetes mellitus with hyperglycemia; I50.9 Heart failure, unspecified; N18.9 Chronic kidney disease, unspecified; B96.1 Klebsiella pneumoniae [K. pneumoniae] as the cause of diseases classified elsewhere; E78.5 Hyperlipidemia, unspecified; F17.210 Nicotine dependence, cigarettes, uncomplicated; F41.9 Anxiety disorder, unspecified; F32.A Depression, unspecified; Z90.49 Acquired absence of other specified parts of digestive tract; E87.6 Hypokalemia; Z68.25 Body mass index [BMI] 25.0-25.9, adult
CPT/HCPCS: 10879

== ENCOUNTER 2021-11-24 15:44 | Emergency (ER) | payer MEDICARE ==
[~2021-11-24] VITALS: Ht 152.4 cm; Wt 59.0 kg
--- NOTE | ~2021-11-24 | EMS ---
[address] [address] EMS Patient Care Report Name: SOPHIE ARENAS Room #: DEP Barb#: [id number] Admission: 11/24/21 Attend Phys: Discharge: 11/24/21 Date of : 43 Report #: [id number] THIS REPORT FOR: //name// Report Transmitted: 11/25/2021 09:57 EMS Care Summary [facility] Incident [id number] @ 11/24/2021 15:05 Incident Location [address] [place] [address] Patient SOPHIE ARENAS Female, 76 Years 1945 Patient Address [address] [place] [address] Patient History Chronic Obstructive Pulmonary Disease (COPD),Seizures,Depression,Colostomy,Type 1 Diabetes, Patient Allergies No known allergies, Patient Medications Hydrocodone, Chief Complaint High blood sugar Disposition Transported No Lights/[place] Dispatch Reason Diabetic Problem Transported To [facility] Narrative [facility] dispatched on a diabetic. Dispatch advised [facility] that the pt was covid positive. Personnel donned appropriate PPE prior to entering the scene. Upon arrival, the pt was found sitting in bed, alert and talking with family. Pt's [address] [address] EMS Patient Care Report Name: SOPHIE ARENAS [id number] Admission: 11/24/21 Attend Phys: Discharge: 11/24/21 Date of : 43 Report #: [id number] family stated that the pt's blood sugar read "500" on there monitor. Family stated that they gave the pt "5 units of insulin" and she normally takes "10 units". Pt vital signs were obtained and assessment was performed. Pt was aox4 w/ a gcs of 15. Pt was able to sit in her personal walker/wheelchair and was wheeled to the front door, where she was then lifted by personnel and placed on the cot. Once in the back of the ambulance, pt was reattached to the panel monitor and transport was initiated. En route, the pt was continuously monitored. Secondary assessment showed no significant change with the pt's condition. Multiple IV attempts were made but unsuccessful. Receiving facility was advised that the pt was covid positive when the radio report was given. [facility] arrived w/o incident. Pt was taken to room 11 upon arrival. Pt was sheet lifted from the cot to the hospital bed w/o incident. Pt report was given to receiving staff w/o incident. Appropriate signatures were obtained. [facility] returned to service. Initial Vitals @15:24P: 79,SpO2: 96, @15:26P: 77,SpO2: 97, @15:31P: 79,R: 22,BP: 178/84,GCS: 15,Glucose: 514,SpO2: 98,Revised Trauma: 12, @15:24P: 78,R: 18,BP: 170/80,Pain: 4/10,GCS: 15,Glucose: -2,SpO2: 97,Revised Trauma: 12, Impression Diabetic Hyperglycemia Procedures @15:13 ALS AssessmentSucceeded @15:30 IV Therapy - 0cc (20 ga) Site: Forearm-Left Response: UnchangedFailed @15:25 IV Therapy - Saline Lock 0cc (18 ga) Site: Hand-Left Response: UnchangedFailed @15:35 IV Therapy - Saline Lock cc (20 ga) Site: Forearm-Right Response: UnchangedFailed Timeline 15:03,Call Received 15:03,Psap Call 15:05,Dispatched 15:06,En Route 15:10,Initial Responder On Scene 15:10,On Scene 15:13,At Patient 15:13,ALS Assessment,Succeeded, [facility] [address] [place] [address] EMS Patient Care Report Name: SOPHIE ARENAS David [id number] Admission: 11/24/21 Attend Phys: Discharge: 11/24/21 Date of : 43 Report #: [id number] 15:22,Depart Scene 15:24,BP: 170/80 M,PULSE: 78,RR: 18 R,SPO2: 97 Ox,ETCO2: ,BG: -2,PAIN: 4,GCS: 15, 15:24,BP: / M,PULSE: 79,RR: R,SPO2: 96 Ox,ETCO2: ,BG: ,PAIN: ,GCS: , 15:25,IV Therapy - Saline Lock 0cc 18 ga Site: Hand-Left,Response: UnchangedFailed, 15:26,BP: / M,PULSE: 77,RR: R,SPO2: 97 Ox,ETCO2: ,BG: ,PAIN: ,GCS: , 15:30,IV Therapy - 0cc 20 ga Site: Forearm-Left,Response: UnchangedFailed, 15:31,BP: 178/84 M,PULSE: 79,RR: 22 R,SPO2: 98 Ox,ETCO2: ,B,PAIN: ,GCS: 15, 15:35,IV Therapy - Saline Lock cc 20 ga Site: Forearm-Right,Response: UnchangedFailed, 15:41,At Destination 15:45,Transfer Patient 15:56,Call Closed Disclaimer v1.1 Copyright 2021 [employer] This EMS Care Summary contains data elements from the applicable legal record (which may be displayed differently). It is designed to provide pertinent information for the following purposes: continuity of care, clinical quality, and state data reporting. The complete legal record is available to ED staff and administrators of the receiving hospital in [employer] Patient Tracker. All data is provided "as is."
[~2021-11-24 15:44] MED LIST changes: +AMLODIPINE BESY10 MG PO; +CEFDINIR300 MG PO; +CIPRO250 M2 PO; +KEPPRA 500 MG500 M1; +LIPITOR 40 MG T40 M1 PO; +LOMOTIL 2.5-0.01 TAB PO; +LOMOTIL TABLET1 EACH; +NORCO 10-325 T1 EACH; +OXCARBAZEPINE300 MG PO; +PAROXETINE HCL20 MG PO; +PREDNISONE 10 M10 M1 PO; +PREGABALIN75 MG PO; +THEOPHYLLINE A400 MG PO
[2021-11-24 16:06] LABS: BE(vivo) -2.7 mmol/L (-2 to +3); HCO3 23.2 mmol/L (22.0-26.0); PCO2 VENOUS 45.1 mmHg (41.0-51.0); PO2 VENOUS 35.4 mmHg (35.0-45.0)
[2021-11-24 16:12] LABS: HEMATOCRIT 33.9 % (37.0-47.0); HEMOGLOBIN 11.2 gm/dL (12.0-15.0); MCH 30.1 pg (26.0-34.0); MCHC 33.2 g/dL (28.0-37.0); MCV 90.8 fL (80.0-100.0); PLATELET COUNT 198 thou/uL (150-400); RBC 3.73 mil/uL (4.20-5.00); RDW 17.1 % (10.5-14.5); WBC 6.7 thou/uL (4.0-11.0)
[2021-11-24 16:25] LABS: CALCIUM 8.7 mg/dL (8.5-10.1); POTASSIUM 5.3 mmol/L (3.5-5.1)
[2021-11-24 16:33] LABS: TOTAL BILIRUBIN 0.2 mg/dL (0.2-1.0); TOTAL PROTEIN 6.5 g/dL (6.4-8.2)
[2021-11-24 16:38] LABS: ABSOLUTE NEUTROPHILS 6.2 thou/uL (1.4-8.2)
[2021-11-24 17:10] LABS: URINE BILIRUBIN NEGATIVE (Negative); URINE BLOOD TRACE (Negative); URINE CLARITY CLEAR; URINE COLOR YELLOW; URINE GLUCOSE-RANDOM* 3+ (Negative); URINE KETONES NEGATIVE (Negative); URINE LEUKOCYTES-REFLEX NEGATIVE (Negative); URINE NITRITE-REFLEX NEGATIVE (Negative); URINE PROTEIN (DIPSTICK) 1+ (Negative); URINE SPECIFIC GRAVITY 1.015 (1.005-1.035); URINE UROBILINOGEN 0.2 E.U./dl (0.2-1.0)
[2021-11-24 17:20] LABS: BACTERIA-REFLEX None Seen /HPF (None Seen); SQUAMOUS 0-3 Few /LPF (0-3); URINE RBC 1-2 Rare /HPF (NONE SEEN); URINE WBC-REFLEX 0-5 Rare /HPF (0-5)
[2021-11-24 17:21] LABS: CASTS None Seen /LPF (None Seen); CRYSTALS None Seen /LPF (None Seen)
[2021-11-24 20:30] VITALS: BP 132/76
== END 2021-11-24 20:30 | disposition home or self-care (01) ==
LOC: ER → EDBD 15:44 → ER 15:44
PROVIDERS: Emergency Medicine
DX: E11.65 Type 2 diabetes mellitus with hyperglycemia (principal)